=== PATIENT | female | born 1975 | race Hispanic/Latino ===

== ENCOUNTER 2020-04-10 11:22 | Emergency (ER) | payer OTHER ==
[2020-04-10] MEDS ORDERED: KETOROLAC TROMETHAMINE 60 MG/2 ML VIAL ONE (12:04)
== END 2020-04-10 15:26 | disposition home or self-care (01) ==
LOC: EDH 11:22
DX: N63.0 Unspecified lump in unspecified breast (principal); N64.4 Mastodynia; Z98.890 Other specified postprocedural states; Z90.710 Acquired absence of both cervix and uterus
CPT/HCPCS: 76642; 96372; 99284; J1885